=== PATIENT | male | born 1990 | race Caucasian/White ===

== ENCOUNTER 2023-08-30 05:00 | Emergency (ER) | payer OTHER ==
[~2023-08-30] VITALS: Ht 165.1 cm; Wt 68.0 kg
[2023-08-30] MEDS ORDERED: TDAP DIPH,PERTUSS,TET VAC/PF 0.5 ML DISP.SYRIN IM ONE (05:30)
[2023-08-30] MEDS: LIDOCAINE HCL 1% 20 ML VIAL IJ ONE (05:30)
[2023-08-30] MEDS ORDERED: LIDOCAINE HCL 1% 20 ML VIAL ONE (05:31)
[2023-08-30] MEDS: TDAP DIPH,PERTUSS,TET VAC/PF 0.5 ML DISP.SYRIN IM ONE (05:40)
[2023-08-30] MEDS: LIDOCAINE 2%-EPI 1:100,000 20 ML VIAL IJ ONE (06:47)
[2023-08-30] MEDS ORDERED: LIDOCAINE 2%-EPI 1:100,000 20 ML VIAL ONE (06:48)
[2023-08-30] MEDS ORDERED: NEOMY/BACITRAC/POLYMI OINT 28.35 GM TUBE ONE ×2 (08:07→08:08)
[2023-08-30 08:20] VITALS: BP 133/80; TEMP 97; O2SAT 99
[2023-08-30] MEDS: NEOMY/BACITRA/POLYMYXIN B OINT UD PACKET TP ONE (08:20)
== END 2023-08-30 08:21 | disposition home or self-care (01) ==
LOC: ER 05:12
DX: S51.811A Laceration without foreign body of right forearm, initial encounter (principal); W01.0XXA Fall on same level from slipping, tripping and stumbling without subsequent striking against object, initial encounter; Y93.89 Activity, other specified; Y92.091 Bathroom in other non-institutional residence as the place of occurrence of the external cause; Y99.8 Other external cause status
CPT/HCPCS: 73090; 90715; A4606; A4663; J3490